=== PATIENT | female | born 1930 | race Caucasian/White ===

== ENCOUNTER → 2017-01-06 | Outpatient (CLI) | payer OTHER ==
[~2017-01-06] MED LIST: IODIXANOL LOCM 100 ML BTL ONE; SOD CHLORIDE 0.9% 100 ML ONE
--- NOTE | 2017-01-06 19:58 | RADRPT ---
PROCEDURE: CT Abdomen and Pelvis with contrast. CLINICAL INDICATION: Evaluate for malignancy TECHNIQUE: CT scan of the abdomen and pelvis with contrast was performed on a multi-detector high- resolution CT scanner. The patient was scanned following the intravenous administration of 80 cc Vi sipaque 320. Coronal and sagittal reformatted images were obtained from the axial source images. Mojgan ges were reviewed on a high-resolution PACS workstation. The total exam CTDI equals 4.31 mGy and the total exam DLP equals 205.42 mGy-cm. One or more the following dose reduction techniques were utilized: Automated exposure control, adjus tment of the mA/ or kV according to patient's size, or use of iterative reconstruction technique. COMPARISON: None. FINDINGS: CT abdomen: Linear atelectasis/fibrosis at lung bases. Coronary artery calcification. Calcification in thoraci c aorta and region of aortic valve. Minimal hepatic steatosis. Mild prominence of central intrahepa tic bile ducts which can be seen status post cholecystectomy.. The spleen is normal in size and homo geneous in density. The stomach is partially collapsed, but is grossly unremarkable. There is the appearance of an approximate 2.1 cm duodenal diverticulum arising from the second portion of the duo denum projected over the head of the pancreas. Cholecystectomy. The diameter of the extrahepatic rob e duct is approximately 9 mm which can be seen status post cholecystectomy. The adrenal glands are symmetric and normal. Very small low density structures too small to characterize in kidneys. No im aging follow-up of these is recommended. The aorta is of normal caliber. Aortic vascular calcifications are present. Calcification in bilate ral renal splenic, celiac and iliac arteries. There is no retroperitoneal lymphadenopathy. The port a hepatis region is clear. Diverticula in sigmoid and ascending colon. There is no specific evidenc e of acute diverticulitis seen. CT pelvis: The small bowel loops situated within the pelvis are unremarkable. Vascular calcifications in the u terus. The pelvic sidewalls and inguinal regions are clear. The sigmoid colon and rectum are remar kable for sigmoid diverticulosis. No mass, lymphadenopathy, or free fluid is seen. No acute inflam mation is seen. The bladder is normal. Diffuse osteopenia. Mild osteitis pubis. Degenerative changes at sacroiliac joints. Lumbar spondy losis. Bilateral L5 spondylolysis and grade 1 - II L5 on S1 spondylolisthesis. No osteolytic or ost eoblastic lesion is detected. IMPRESSION: No evidence of malignancy seen. Minimal hepatic steatosis. Atherosclerosis. Colonic diverticulosi s. No specific evidence of acute diverticulitis seen. Please see above. RPTAT: HJES .Zane Gr MD, Date Time Electronically viewed and signed by .Zane Gr MD, on 01/06/2017 19:58 .S/
== END | disposition home or self-care (01) ==
LOC: C/S 09:02
PROVIDERS: ATTEND Internal Medicine
DX: Z12.9 Encounter for screening for malignant neoplasm, site unspecified (principal); K76.0 Fatty (change of) liver, not elsewhere classified; I70.0 Atherosclerosis of aorta; K57.30 Diverticulosis of large intestine without perforation or abscess without bleeding; Z90.49 Acquired absence of other specified parts of digestive tract; I70.1 Atherosclerosis of renal artery; I70.8 Atherosclerosis of other arteries
CPT/HCPCS: 74177; Q9967